=== PATIENT | female | born 1970 | race African-American/Black ===

== ENCOUNTER 2019-03-28 12:34 | Inpatient (IN) | payer SELFPAY ==
[~2019-03-28] VITALS: Ht 174 cm; Wt 108.9 kg
[2019-03-28] MEDS ORDERED: CEFTRIAXONE 1 G PREMIX 50 ML IV ONE (17:00)
[2019-03-28] MEDS ORDERED: SODIUM CHLORIDE 0.9% 1,000 ML IV ONE (17:00)
[2019-03-28] MEDS ORDERED: KETOROLAC 30MG/ML VIAL IV ONE (17:00)
[2019-03-28] MEDS ORDERED: CLINDAMYCIN 600 MG in DEXTROSE 5% WATER 50 ML IV ONE (17:00)
[2019-03-28 17:17] LABS: BASOPHILS % 0.9 % (0.0-2.0); EOSINOPHILS % 1.4 % (0.0-5.0); HEMATOCRIT. 39.9 % (36.0-48.0); HEMOGLOBIN. 13.1 g/dL (12.0-16.0); MEAN CORPUSCULAR HEMOGLOBIN 24.7 pg (28.0-32.0); MEAN CORPUSCULAR VOLUME 74.9 fL (81.0-99.0); MEAN PLATELET VOLUME 8.9 fl (7.4-10.4); MONOCYTES % 4.5 % (2.0-8.0); NEUTROPHILS % 71.2 % (40.0-76.0); PLATELET 428 x1000/uL (130-400); RED BLOOD CELL COUNT 5.33 mill/uL (4.2-5.4); RED CELL DISTRIBUTION WIDTH 15.8 % (11.6-14.6)
[2019-03-28 17:24] LABS: CHLORIDE 102 mEq/L (98-107)
[2019-03-28] MEDS ORDERED: INSULIN REGULAR (HUMULIN R) 300UNITS/3ML IV NR (18:00)
[2019-03-28] MEDS ORDERED: INSULIN REGULAR (HUMULIN R) UD 100 UNITS/ML SYR SUBCUT ONE (18:45)
[2019-03-28] MEDS ORDERED: CLINDAMYCIN 600MG PREMIX 50 ML IV SCH (20:00)
[2019-03-28] MEDS ORDERED: IOHEXOL-300 100 ML BOTTLE ONE (20:40)
[2019-03-28 21:30] VITALS: BP 134/72
[2019-03-28] MEDS ORDERED: ACETAMINOPHEN 325MG TABLET PO PRN (22:45)
[2019-03-28] MEDS ORDERED: DEXTROSE 50% WATER 50ML SYRINGE IV PRN (22:45)
[2019-03-28] MEDS ORDERED: MORPHINE SULFATE 2 MG/ML CPJ (NOT FOR IM USE) IV PRN (22:45)
[2019-03-29] VITALS: BP 131/62
[2019-03-29] MEDS ORDERED: PIPERACILLIN/TAZOBACTAM 3.375GM/50ML PREMIX IV SCH
[2019-03-29] MEDS ORDERED: GLIP5TAB12 MT (00:13)
[2019-03-29] MEDS: PIPERACILLIN/TAZOBACTAM 3.375 G in DEXT 5% WATER 100 ML IV SCH ×5 (00:58→23:31)
[2019-03-29] MEDS ORDERED: VANCOMYCIN 1 G PREMIX 200 ML IV SCH (01:00)
[2019-03-29 04:00] VITALS: BP 117/71
[2019-03-29] MEDS: BLOOD SUGAR DIAGNOSTIC STRIP TEST SCH ×4 (06:51→21:10)
[2019-03-29 07:36] LABS: BASOPHILS % 0.6 % (0.0-2.0); EOSINOPHILS % 2.1 % (0.0-5.0); HEMATOCRIT. 35.9 % (36.0-48.0); HEMOGLOBIN. 11.8 g/dL (12.0-16.0); LYMPHOCYTES % 28.9 % (20.0-50.0); MEAN CORPUSCULAR HEMOGLOBIN 24.9 pg (28.0-32.0); MEAN CORPUSCULAR VOLUME 75.4 fL (81.0-99.0); MEAN PLATELET VOLUME 9.1 fl (7.4-10.4); MONOCYTES % 5.2 % (2.0-8.0); NEUTROPHILS % 63.2 % (40.0-76.0); PLATELET 395 x1000/uL (130-400); RED BLOOD CELL COUNT 4.76 mill/uL (4.2-5.4); RED CELL DISTRIBUTION WIDTH 15.6 % (11.6-14.6)
[2019-03-29 08:00] VITALS: BP 114/67
[2019-03-29] MEDS: ENOXAPARIN 30MG/0.3ML SYR SUBCUT SCH ×2 (08:14→21:17)
[2019-03-29 08:16] LABS: CHLORIDE 103 mEq/L (98-107)
[2019-03-29] MEDS: INSULIN LISPRO 100 UNITS/ML SUBCUT SCH ×4 (08:16→21:15)
[2019-03-29] MEDS ORDERED: ENOXAPARIN 40MG/0.4ML SYR SUBCUT SCH (09:00)
[2019-03-29] MEDS ORDERED: INSULIN GLARGINE UD 100 UNITS/ML SYR SUBCUT SCH (10:00)
[2019-03-29] MEDS: VANCOMYCIN 1250MG in DEXTROSE 5% WATER 250ML IV SCH ×2 (13:34→21:34)
[2019-03-29 16:00] VITALS: BP 121/73
[2019-03-29] MEDS ORDERED: PNV1TABL50 MT (16:47)
[2019-03-29] MEDS ORDERED: ASPI-1393 PO (16:47)
[2019-03-29] MEDS ORDERED: LISI10TA5 MT (16:47)
[2019-03-29 18:57] LABS: CLARITY URINE CLEAR (CLEAR); COLOR URINE YELLOW (YELLOW); KETONES URINE NEGATIVE (NEGATIVE); LEUKOCYTE ESTERASE URINE NEGATIVE (NEGATIVE); NITRITE URINE NEGATIVE (NEGATIVE); OCCULT BLOOD URINE NEGATIVE (NEGATIVE); PROTEIN URINE NEGATIVE (NEGATIVE); SPECIFIC GRAVITY URINE 1.023 (1.005-1.030); UROBILINOGEN URINE 0.2 E.U./dL (0.2-1.0)
[2019-03-29 19:18] LABS: *AMPHETAMINES SCREEN URINE NEGATIVE (NEGATIVE); *BARBITURATES SCREEN URINE NEGATIVE (NEGATIVE); *BENZODIAZEPINES SCREEN URINE NEGATIVE (NEGATIVE); *COCAINE SCREEN URINE NEGATIVE (NEGATIVE)
[2019-03-29 19:20] LABS: CANNABINOID URINE SCREEN NEGATIVE (NEGATIVE); METHADONE URINE SCREEN NEGATIVE (NEGATIVE); OPIATES URINE SCREEN NEGATIVE (NEGATIVE); PHENCYCLIDINE URINE SCREEN NEGATIVE (NEGATIVE)
[2019-03-29 20:00] VITALS: BP 95/62
[2019-03-29] MEDS: INSULIN GLARGINE UD 100 UNITS/ML SYR SUBCUT SCH (23:27)
[2019-03-30] VITALS: BP 106/50
[2019-03-30 04:00] VITALS: BP 105/63
[2019-03-30 06:31] LABS: BASOPHILS % 0.9 % (0.0-2.0); EOSINOPHILS % 2.6 % (0.0-5.0); HEMATOCRIT. 35.7 % (36.0-48.0); LYMPHOCYTES % 30.9 % (20.0-50.0); MEAN CORPUSCULAR HEMOGLOBIN 25.1 pg (28.0-32.0); MEAN CORPUSCULAR VOLUME 74.5 fL (81.0-99.0); MEAN PLATELET VOLUME 8.6 fl (7.4-10.4); MONOCYTES % 4.8 % (2.0-8.0); NEUTROPHILS % 60.8 % (40.0-76.0); PLATELET 416 x1000/uL (130-400); RED BLOOD CELL COUNT 4.79 mill/uL (4.2-5.4); RED CELL DISTRIBUTION WIDTH 15.3 % (11.6-14.6)
[2019-03-30] MEDS: PIPERACILLIN/TAZOBACTAM 3.375 G in DEXT 5% WATER 100 ML IV SCH ×2 (06:34→13:00)
[2019-03-30] MEDS: BLOOD SUGAR DIAGNOSTIC STRIP TEST SCH ×2 (06:44→13:17)
[2019-03-30 06:57] LABS: CHLORIDE 102 mEq/L (98-107)
[2019-03-30 08:00] VITALS: BP 113/63
[2019-03-30] MEDS: ENOXAPARIN 30MG/0.3ML SYR SUBCUT SCH (08:58)
[2019-03-30] MEDS: INSULIN LISPRO 100 UNITS/ML SUBCUT SCH (09:58)
[2019-03-30] MEDS: INSULIN GLARGINE UD 100 UNITS/ML SYR SUBCUT SCH (10:23)
[2019-03-30 12:00] VITALS: BP 112/64
[2019-03-30] MEDS: VANCOMYCIN 1250MG in DEXTROSE 5% WATER 250ML IV SCH (13:34)
[2019-03-30] MEDS ORDERED: SULF1TAB48 MT (14:27)
[2019-03-30] MEDS ORDERED: TRAM50TA MT (14:27)
[2019-03-30] MEDS ORDERED: AMOX-424 MT (14:27)
[2019-03-30 16:00] VITALS: BP 110/64
[2019-03-30 16:47] VITALS: BP 112/75
== END 2019-03-30 17:18 | disposition home or self-care (01) | DRG 720 ==
LOC: ER 12:34 → ENRESERV 19:29 → 6EST 20:10
PROVIDERS: ADMIT Internal Medicine; ATTEND Internal Medicine
DX: A41.9 Sepsis, unspecified organism (principal); E44.0 Moderate protein-calorie malnutrition; E87.1 Hypo-osmolality and hyponatremia; L03.314 Cellulitis of groin; L02.415 Cutaneous abscess of right lower limb; E66.9 Obesity, unspecified; F17.200 Nicotine dependence, unspecified, uncomplicated; I10 Essential (primary) hypertension; E11.9 Type 2 diabetes mellitus without complications; L03.116 Cellulitis of left lower limb; L73.2 Hidradenitis suppurativa; Z88.8 Allergy status to other drugs, medicaments and biological substances; Z79.899 Other long term (current) drug therapy; Z79.82 Long term (current) use of aspirin; Z68.36 Body mass index [BMI] 36.0-36.9, adult; Z71.3 Dietary counseling and surveillance; Z71.6 Tobacco abuse counseling
CPT/HCPCS: 36415; 73701; 80048; 80305; 81003; 82962; 83036; 84145; 99285; J0696; J1650; J1815; J1885; J2270; J2543; J3370; J3490; J7030; J7060; Q9967

== ENCOUNTER 2020-05-23 17:23 | Inpatient (IN) | payer MEDICAID, OTHER ==
[~2020-05-23] VITALS: Ht 175.3 cm; Wt 109.8 kg
[~2020-05-23 17:23] MED LIST: AMOX-424 MT; ASPI-1497 PO; GLIP5TAB12 MT; LISI10TA5 MT; PNV1TABL50 MT; SULF1TAB48 MT; TRAM50TA MT
[2020-05-23] MEDS ORDERED: ALOGLIPTIN (17:47)
[2020-05-23] MEDS ORDERED: GLIP10TA10 PO (17:47)
[2020-05-23] MEDS ORDERED: CLINDAMYCIN 600 MG in DEXTROSE 5% WATER 50 ML IV ONE (18:30)
[2020-05-23] MEDS ORDERED: FENTANYL CITRATE/PF 50MCG/ML 2ML VIAL IV ONE ×2 (18:30→19:00)
[2020-05-23] MEDS ORDERED: LABETALOL 5MG/ML SYR 20 MG/4 ML SYRINGE IV ONE (18:30)
[2020-05-23] MEDS ORDERED: LIDOCAINE HCL 1% 20ML VIAL (Pyxis) INJ INFIL NR (18:30)
[2020-05-23] MEDS ORDERED: SODIUM CHLORIDE 0.9% 1000ML BAG (SEPSIS BOLUS) IV ONE (18:30)
[2020-05-23] MEDS ORDERED: CEFTRIAXONE 1 G PREMIX 50 ML IV ONE (18:30)
[2020-05-23 18:31] LABS: BASOPHILS % 0.5 % (0.0-2.0); EOSINOPHILS % 1.4 % (0.0-5.0); HEMATOCRIT. 35.8 % (36.0-48.0); HEMOGLOBIN. 11.7 g/dL (12.0-16.0); LYMPHOCYTES % 11.5 % (20.0-50.0); MEAN CORPUSCULAR HEMOGLOBIN 23.8 pg (28.0-32.0); MEAN CORPUSCULAR VOLUME 72.7 fL (81.0-99.0); MEAN PLATELET VOLUME 8.3 fl (7.4-10.4); MONOCYTES % 7.4 % (2.0-8.0); NEUTROPHILS % 79.2 % (40.0-76.0); PLATELET 513 x1000/uL (130-400); RED BLOOD CELL COUNT 4.93 mill/uL (4.2-5.4); RED CELL DISTRIBUTION WIDTH 14.6 % (11.6-14.6)
[2020-05-23 18:42] LABS: CHLORIDE 100 mEq/L (98-107)
[2020-05-23] MEDS ORDERED: CLINDAMYCIN 600MG PREMIX 50 ML IV SCH (18:45)
[2020-05-23] MEDS ORDERED: KETAMINE HCL 50 MG/ML 10ML IV ONE (19:00)
[2020-05-23] MEDS ORDERED: INSULIN REGULAR (HUMULIN R) 300UNITS/3ML VIAL IV ONE (19:15)
[2020-05-24] MEDS ORDERED: ACETAMINOPHEN 325MG TABLET PO PRN (08:00)
[2020-05-24] MEDS ORDERED: ONDANSETRON HCL 4MG/2ML INJ IV PRN (08:00)
[2020-05-24] MEDS: PIPERACILLIN/TAZOBACTAM 3.375 G in DEXT 5% WATER 100 ML IV SCH ×3 (09:00→20:48)
[2020-05-24] MEDS ORDERED: VANCOMYCIN 1 G PREMIX 200 ML IV NR (09:00)
[2020-05-24] MEDS: INSULIN GLARGINE UD 100 UNITS/ML SYR SUBCUT SCH ×2 (09:55→23:00)
[2020-05-24 10:24] LABS: BASOPHILS % 0.5 % (0.0-2.0); EOSINOPHILS % 2.1 % (0.0-5.0); HEMATOCRIT. 33.5 % (36.0-48.0); HEMOGLOBIN. 10.8 g/dL (12.0-16.0); MEAN CORPUSCULAR HEMOGLOBIN 23.1 pg (28.0-32.0); MEAN CORPUSCULAR VOLUME 71.5 fL (81.0-99.0); MEAN PLATELET VOLUME 7.7 fl (7.4-10.4); MONOCYTES % 7.3 % (2.0-8.0); NEUTROPHILS % 75.1 % (40.0-76.0); PLATELET 496 x1000/uL (130-400); RED BLOOD CELL COUNT 4.68 mill/uL (4.2-5.4); RED CELL DISTRIBUTION WIDTH 14.6 % (11.6-14.6)
[2020-05-24 10:32] LABS: CHLORIDE 105 mEq/L (98-107)
[2020-05-24] MEDS ORDERED: DEXTROSE 50% WATER 50ML SYRINGE IV PRN (10:45)
[2020-05-24] MEDS: HYDROCODONE/ACETAMINOPHEN 5/325MG TABLET PO PRN ×2 (11:50→21:00)
[2020-05-24] MEDS: BLOOD SUGAR DIAGNOSTIC STRIP TEST SCH ×3 (12:45→21:07)
[2020-05-24] MEDS ORDERED: VANCOMYCIN 750 MG PREMIX 150 ML IV SCH (13:00)
[2020-05-24] MEDS: INSULIN LISPRO 100 UNITS/ML SUBCUT SCH ×3 (13:07→21:07)
[2020-05-24] MEDS: VANCOMYCIN 750 MG PREMIX 150 ML IV SCH (15:00)
[2020-05-25] VITALS: BP 134/83
[2020-05-25] MEDS: VANCOMYCIN 750 MG PREMIX 150 ML IV SCH ×4 (00:47→22:40)
[2020-05-25] MEDS ORDERED: PIPERACILLIN/TAZOBACTAM 3.375 G in DEXT 5% WATER 100 ML IV SCH (02:00)
[2020-05-25 06:27] LABS: BASOPHILS % 0.6 % (0.0-2.0); EOSINOPHILS % 2.5 % (0.0-5.0); HEMATOCRIT. 32.4 % (36.0-48.0); HEMOGLOBIN. 10.5 g/dL (12.0-16.0); LYMPHOCYTES % 17.5 % (20.0-50.0); MEAN CORPUSCULAR HEMOGLOBIN 23.1 pg (28.0-32.0); MEAN CORPUSCULAR VOLUME 71.2 fL (81.0-99.0); MEAN PLATELET VOLUME 8.2 fl (7.4-10.4); MONOCYTES % 6.5 % (2.0-8.0); NEUTROPHILS % 72.9 % (40.0-76.0); PLATELET 489 x1000/uL (130-400); RED BLOOD CELL COUNT 4.55 mill/uL (4.2-5.4); RED CELL DISTRIBUTION WIDTH 14.6 % (11.6-14.6)
[2020-05-25 06:37] LABS: CHLORIDE 100 mEq/L (98-107)
[2020-05-25] MEDS: BLOOD SUGAR DIAGNOSTIC STRIP TEST SCH ×4 (07:30→21:00)
[2020-05-25] MEDS: INSULIN LISPRO 100 UNITS/ML SUBCUT SCH ×4 (08:00→22:58)
[2020-05-25 10:13] VITALS: BP 128/69
[2020-05-25] MEDS: HYDROCODONE/ACETAMINOPHEN 5/325MG TABLET PO PRN ×2 (12:58→21:19)
[2020-05-25] MEDS ORDERED: INSULIN GLARGINE UD 100 UNITS/ML SYR SUBCUT SCH ×2 (13:00→22:00)
[2020-05-25] MEDS ORDERED: INSULIN GLARGINE UD 100 UNITS/ML SYR SUBCUT NR (15:00)
[2020-05-25] MEDS: PIPERACILLIN/TAZOBACTAM 3.375 G in DEXT 5% WATER 100 ML IV SCH ×2 (15:27→18:56)
[2020-05-25 20:00] VITALS: BP 150/80
[2020-05-26] VITALS: BP 116/70
[2020-05-26 04:00] VITALS: BP 130/80
[2020-05-26] MEDS: PIPERACILLIN/TAZOBACTAM 3.375 G in DEXT 5% WATER 100 ML IV SCH ×2 (05:34→11:33)
[2020-05-26] MEDS: VANCOMYCIN 750 MG PREMIX 150 ML IV SCH (06:26)
[2020-05-26] MEDS: BLOOD SUGAR DIAGNOSTIC STRIP TEST SCH ×2 (06:27→12:20)
[2020-05-26] MEDS: INSULIN LISPRO 100 UNITS/ML SUBCUT SCH ×2 (07:49→13:23)
[2020-05-26 08:00] VITALS: BP 118/74
[2020-05-26 09:32] LABS: CHLORIDE 101 mEq/L (98-107)
[2020-05-26 12:00] VITALS: BP 110/68
[2020-05-26] MEDS ORDERED: INSULIN GLARGINE UD 100 UNITS/ML SYR SUBCUT SCH (12:00)
[2020-05-26] MEDS ORDERED: LANTUSUD SUBCUT (12:00)
[2020-05-26 12:53] VITALS: BP 110/68
[2020-05-26] MEDS ORDERED: INSULIN LISPRO 100 UNITS/ML SUBCUT NR (14:45)
== END 2020-05-26 14:50 | disposition left against medical advice (07) | DRG 720 ==
LOC: ER 17:23 → MICUSO 21:17 → EDBEDREQ 21:42 → EDBEDREQTM 21:42 → 5EST 05-24 22:22 → 6EST 05-25 11:27
PROVIDERS: ADMIT Internal Medicine; ATTEND Internal Medicine
PROC: 0Y900ZZ Drainage of Right Buttock, Open Approach (ICD-10-PCS; principal; 2020-05-23)
DX: A41.9 Sepsis, unspecified organism (principal); L73.2 Hidradenitis suppurativa; L03.112 Cellulitis of left axilla; I10 Essential (primary) hypertension; R65.20 Severe sepsis without septic shock; E87.1 Hypo-osmolality and hyponatremia; Z53.29 Procedure and treatment not carried out because of patient's decision for other reasons; E87.2 Acidosis; L03.317 Cellulitis of buttock; E66.01 Morbid (severe) obesity due to excess calories; L02.31 Cutaneous abscess of buttock; Z88.5 Allergy status to narcotic agent; Z79.899 Other long term (current) drug therapy; Z79.82 Long term (current) use of aspirin; Z68.35 Body mass index [BMI] 35.0-35.9, adult; Z79.84 Long term (current) use of oral hypoglycemic drugs; E11.65 Type 2 diabetes mellitus with hyperglycemia
CPT/HCPCS: 36415; 71045; 80048; 80202; 82962; 83036; 83605; 85025; 87070; 87075; 93005; 99152; 99291; J0696; J1815; J2543; J3010; J3370; J3490; J7030; J7040; J7060

== ENCOUNTER 2020-11-06 20:06 | Emergency (ER) | payer OTHER, MEDICAID ==
[~2020-11-06] VITALS: Ht 175.3 cm; Wt 112.3 kg
[~2020-11-06 20:06] MED LIST changes: +ALOGLIPTIN; +GLIP10TA10 PO; +LANTUSUD SUBCUT; +LISI10TA26 MT; -LISI10TA5 MT; -SULF1TAB48 MT
[2020-11-06] MEDS ORDERED: SODIUM CHLORIDE 0.9% 1,000 ML IV ONE ×2 (21:15)
[2020-11-06] MEDS ORDERED: PIPERACILLIN/TAZ 3.375G PREMIX 50 ML IV ONE (21:15)
[2020-11-06] MEDS ORDERED: VANCOMYCIN 1 G PREMIX 200 ML IV ONE (21:15)
[2020-11-06] MEDS ORDERED: MORPHINE SULFATE 4 MG/ML CPJ (NOT FOR IM USE) IV ONE (21:15)
[2020-11-06 21:34] LABS: BASOPHILS % 0.4 % (0.0-2.0); EOSINOPHILS % 1.4 % (0.0-5.0); HEMATOCRIT. 33.5 % (36.0-48.0); HEMOGLOBIN. 10.8 g/dL (12.0-16.0); MEAN CORPUSCULAR HEMOGLOBIN 21.7 pg (28.0-32.0); MEAN CORPUSCULAR VOLUME 67.1 fL (81.0-99.0); MEAN PLATELET VOLUME 7.8 fl (7.4-10.4); MONOCYTES % 5.9 % (2.0-8.0); NEUTROPHILS % 74.3 % (40.0-76.0); PLATELET 676 x1000/uL (130-400); RED BLOOD CELL COUNT 4.99 mill/uL (4.2-5.4); RED CELL DISTRIBUTION WIDTH 17.5 % (11.6-14.6)
[2020-11-06 21:40] LABS: CHLORIDE 103 mEq/L (98-107)
[2020-11-06 21:43] LABS: PROTHROMBIN TIME 10.4 sec (9.6-11.0)
[2020-11-06 21:51] LABS: PLATELET ESTIMATE INCREASED
[2020-11-06 22:49] LABS: CLARITY URINE CLEAR (CLEAR); COLOR URINE YELLOW (YELLOW); KETONES URINE NEGATIVE (NEGATIVE); LEUKOCYTE ESTERASE URINE NEGATIVE (NEGATIVE); NITRITE URINE NEGATIVE (NEGATIVE); OCCULT BLOOD URINE NEGATIVE (NEGATIVE); PH URINE 5.5 (4.5-8.0); PROTEIN URINE NEGATIVE (NEGATIVE)
[2020-11-07] MEDS ORDERED: ACETAMINOPHEN 325MG TABLET PO ONE (01:00)
[2020-11-07] MEDS ORDERED: IOHEXOL-300 100 ML BOTTLE ONE (02:16)
[2020-11-07 05:30] VITALS: BP 132/76
== END 2020-11-07 06:01 | disposition short-term general hospital (02) ==
LOC: ER 20:06 → CANBEDREQ 11-07 06:22
DX: A41.9 Sepsis, unspecified organism (principal); L73.2 Hidradenitis suppurativa; E11.9 Type 2 diabetes mellitus without complications; Z79.899 Other long term (current) drug therapy
CPT/HCPCS: 36415; 72193; 80053; 81003; 83605; 84145; 84484; 85025; 85610; 87040; 87086; 93005; 96365; 96366; 96375; 99291; J2270; J2543; J3370; J7030; Q9967

== ENCOUNTER 2024-11-28 07:31 | Emergency (ER) | payer MEDICARE, MEDICAID ==
[~2024-11-28] VITALS: Ht 175.3 cm; Wt 118.0 kg
[~2024-11-28 07:31] MED LIST changes: -GLIP10TA10 PO; +GLIP10TA17 PO; -GLIP5TAB12 MT; +GLIP5TAB22 MT
[2024-11-28 08:00] VITALS: O2SAT 100
[2024-11-28] MEDS ORDERED: LIDOCAINE HCL/EPINEPHRINE 1%-EPI 1:100,000 10ML VIAL INFIL ONE (08:45)
[2024-11-28] MEDS: KETOROLAC 30MG/ML VIAL IM ONE (08:50)
[2024-11-28] MEDS ORDERED: LIDOCAINE HCL/EPINEPHRINE 1%-EPI 1:100,000 20ML VIAL INFIL SCH (09:00)
[2024-11-28] MEDS ORDERED: SULF1TAB48 MT (09:46)
[2024-11-28 10:15] VITALS: BP 164/82; PULSE 84; RESP 16; TEMP 36.7; O2SAT 100
== END 2024-11-28 10:18 | disposition home or self-care (01) ==
LOC: ER 07:31
DX: L02.411 Cutaneous abscess of right axilla (principal); E11.9 Type 2 diabetes mellitus without complications; L73.2 Hidradenitis suppurativa; Z79.84 Long term (current) use of oral hypoglycemic drugs; Z79.899 Other long term (current) drug therapy
CPT/HCPCS: 99283; 10060; 96372; J1885; J2004